=== PATIENT | male | born 1985 | race Caucasian/White ===

== ENCOUNTER → 2024-10-12 | Outpatient (CLI) | payer OTHER, MEDICAID, SELFPAY ==
--- NOTE | 2024-10-12 13:06 | EKG_ITS ---
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
== END | disposition home or self-care (01) ==
LOC: SDIM 12:43 → SEKG 12:58
PROVIDERS: PCP Specialist; Referring Provider Specialist; Visit Provider Specialist
DX: Z01.810 Encounter for preprocedural cardiovascular examination (principal)
CPT/HCPCS: 93005

== ENCOUNTER 2024-10-16 08:10 | Day surgery (SDC) | payer OTHER, MEDICAID, SELFPAY ==
[2024-10-12 13:18] LABS: Partial Thromboplastin Time 27.6 Seconds (22.0-36.0); Prothrombin Time 10.9 Seconds (9.0-12.2)
[2024-10-12 13:24] LABS: Alanine Aminotransferase 49 U/L (10-49); Albumin, Serum 4.9 gm/dL (3.5-5.0); Albumin/Globulin Ratio 1.8 (1.2-2.2); Alkaline Phosphatase 77 U/L (46-116); Anion Gap 9 (7-16); Aspartate Amino Transferase 33 U/L (0-34); BUN/Creatinine Ratio 27 Ratio (12-20); Bilirubin,Total 0.5 mg/dL (0.3-1.2); Blood Urea Nitrogen 27 mg/dL (9-23); Calcium 9.9 mg/dL (8.3-10.6); Calcium (Corrected) 9.9 mg/dL (8.5-10.1); Carbon Dioxide 26.1 mMol/L (20.0-31.0); Chloride 104 mMol/L (98-107); Globulin 2.7 gm/dL (2.3-3.5); Glucose 105 mg/dL (74-106); Osmolality,Calculated 282 (275-295); Potassium 4.3 mMol/L (3.4-5.1); Sodium 139 mMol/L (136-145); Total Protein 7.6 gm/dL (5.7-8.2); eGFR > 60 See Note
[2024-10-16 09:33] VITALS: BP 132/87; PULSE 67; RESP 17; TEMP 36.7; O2SAT 96; BMI 25.3
[2024-10-16] MEDS: SODIUM CHLORIDE 0.9% 500 ML 500 ML 80 ML IV (10:15)
[2024-10-16 11:00] VITALS: BP 130/77; PULSE 88; RESP 128; TEMP 36.8; O2SAT 94
[2024-10-16 11:10] VITALS: BP 125/76; PULSE 74; RESP 15; O2SAT 96
[2024-10-16 11:20] VITALS: BP 119/76; PULSE 69; RESP 16; O2SAT 93
[2024-10-16 11:30] VITALS: BP 116/83; PULSE 69; RESP 20; O2SAT 97
== END 2024-10-16 12:03 | disposition home or self-care (01) ==
PROVIDERS: PCP Family Medicine; Referring Provider Specialist; Visit Provider Specialist
PROC: 0DBE8ZX Excision of Large Intestine, Via Natural or Artificial Opening Endoscopic, Diagnostic (ICD-10-PCS; CPT 45380; principal; 2024-10-16 09:00)
PROC: (CPT 43239; 2024-10-16 09:00)
DX: K64.9 Unspecified hemorrhoids (principal); K57.31 Diverticulosis of large intestine without perforation or abscess with bleeding; K21.01 Gastro-esophageal reflux disease with esophagitis, with bleeding; K22.2 Esophageal obstruction; K29.71 Gastritis, unspecified, with bleeding
CPT/HCPCS: 45378; 43248; 43239; 36415; 80053; 85610; 85730; A4649; C1769; J7040

== ENCOUNTER 2025-08-28 19:43 | Emergency (ER) | payer OTHER, SELFPAY ==
[2025-08-28 19:45] VITALS: BMI 26.1
[2025-08-28 20:31] VITALS: BP 147/85; PULSE 66; RESP 18; TEMP 36.6; O2SAT 95
--- NOTE | 2025-08-28 20:54 | EDNOTE_ITS ---
ED Abdominal Pain RME/HPI General Chief Complaint: Abdominal Pain Stated complaint: DIVERTICULITIS FLARES, R. LOWER ABD PAIN Time seen by provider: 08/28/25 20:45 Arrival date/time: 08/28/25 19:43 40M with history of diverticulitis and esophagitis presents to ED with several weeks of lower ab pain. Patient think it's a diverticulitis flare. Patient recently finished a 1 week course of Augmentin, which helped a bit. Patient also supplements testosterone, but denies urinary/genital symptoms. Patient has had multiple unremarkable colonoscopies and EGDs. Limitations: no limitations Related Data Home Medications ?Medication ?Instructions ?Recorded ?Confirmed albuterol sulfate 90 mcg/actuation 2 puff inhalation Q DAY PRN 12/23/22 10/16/24 aerosol inhaler Shortness Of Breath Or Wheez ing oxycodone 20 mg tablet 20 mg PO Q4HR PRN Pain 12/2310/16/24 omeprazole 20 mg capsule,delayed 20 mg PO DAILY 10/16/24 release Allergies Allergy/AdvReac Type Severity Reaction Status Date / Time dexlansoprazole (From Allergy Severe Chest Pain Verified 08/28/25 19:44 Dexilant) Review of Systems Review of Systems Systems Reviewed: All systems reviewed, normal except as documented Gastrointestinal Gastrointestinal: Reports as per HPI and Reports abdominal pain Past Medical History Past Medical History NEUROLOGIC: Positive Neurological Disorders (TRIGEMINAL NEUROLGIA); Negative Seizures CARDIAC: Negative Cardiac Disorders or Congestive Heart Failure RESPIRATORY: Positive Asthma (INHALER PRN), Pneumonia and Sleep Apnea; Negative Chronic Obstructive Pulmonary Disease (COPD) GASTROINTESTINAL: Positive Gastrointestinal Disorders (DYSPHAGIA, HX OF ESOPHAGEAL SPASMS, EOE), Diverticulitis, Diverticulosis, Hemorrhoids and Gastroesophageal Reflux Disease; Negative Hepatitis GENITOURINARY: Negative Genitourinary Disorders or Renal Disease MUSCULOSKELETAL: Positive Musculoskeletal Disorders, Degenerative Disk Disease, Scoliosis, Fibromyalgia and Fractures ENDOCRINE: Negative Endocrine Disorders, Diabetes Mellitus Type 1 or Diabetes Mellitus Type 2 HEMATOLOGIC: Negative Blood Disorders or Sickle Cell Disease PSYCHO/SOCIAL: Negative Depression OTHER HISTORY: Positive Hospitalization and Chicken Pox; Negative Autoimmune Disease, Shingles, Falls, Blood Transfusions, Anesthesia Reactions, Chemotherapy, Radiation Therapy, MRSA, Human Immunodeficiency Virus (HIV), Measles, Mumps, Rubella ([place] Measles), Pertussis or Cancer Family History FAMILY HISTORY: Positive Family Psychiatric Problems, Family Respiratory Disorders, Family Cardiac Disorders, Family Cancer (FATHER ESOPHAGEAL CA, GRANDFATHER COLON CA) and Family Surgery; Negative Family Gastrointestinal Problems or Family Anesthesia Reaction Surgical History SURGICAL: Positive Ear Surgery ( PAULOFF HARBOR SYNDROME ), Abdominal Surgery, Arthroscopy (RIGHT KNEE) and Neurologic Surgery (BRAIN SX X 3 TO RELESE PINCHED NERVES); Negative Cardiac Surgery Social History SMOKING STATUS: Former smoker SECOND HAND EXPOSURE: Yes SUBSTANCE USE: does not use ED Exam General Limitations: Present no limitations General appearance: Present alert and in no apparent distress Head Head exam: Present atraumatic Neck Neck exam: Present normal inspection, full ROM and trachea midline Chest Chest inspection: Present normal inspection and symmetric chest wall rise Abdominal Exam Abdominal exam: Present soft; Absent tenderness Neurological Exam Neurological exam: Present alert and oriented X3 Psychiatric Psychiatric exam: Present normal affect and normal mood Skin Skin exam: Present warm, dry, intact and normal color Course Quality Measures none Orders Category Date Time Status Alcohol, Blood Medical Stat Lab 08/28/25 20:52 Completed CBC Stat Lab 08/28/25 20:52 Completed CMP [Comprehensive Metabolic Panel] Stat Lab 08/28/25 20:52 Completed Drug Screen,Urine Stat Lab 08/28/25 21:04 Completed Lactate (Lactic Acid) Stat Lab 08/28/25 20:52 Completed Procalcitonin Stat Lab 08/28/25 20:52 Completed Urinalysis, C/S if Indicated Stat Lab 08/28/25 21:04 Completed Vital Signs Vital signs: Vital Signs Temperature 98 F 08/28/25 20:31 Pulse Rate 66 08/28/25 20:31 Respiratory Rate 18 08/28/25 20:31 Blood Pressure 147/85 H 08/28/25 20:31 Pulse Oximetry (%) 95 08/28/25 20:31 Oxygen Delivery Method Room Air 08/28/25 20:31 O2 at 95% on RA and WNLs Abdominal Pain MDM MDM Narrative MDM Narrative:: 40M with history of diverticulitis and esophagitis presents to ED with several weeks of lower ab pain. Patient think it's a diverticulitis flare. Patient recently finished a 1 week course of Augmentin, which helped a bit. Patient also supplements testosterone, but denies urinary/genital symptoms. Patient has had multiple unremarkable colonoscopies and EGDs. Physical exam reveal no focal ab tenderness. Patient is afebrile, calm, and alert. No leukocytosis or L shift. CMP unremarkable. Procal/lactate normal. UA clean. Patient declines further diagnostics including CT. Patient data External records reviewed:: [facility] previous records Clinical information provided by:: patient Social determinants that could affect healthcare access:: none Patient has the following chronic illnesses:: diverticulitis and esophagitis How is presenting disease/condition affected by chronic disease/condition?: exacerbated by Evaluation data The following diagnostics were reviewed and interpreted by me:: lab results Lab and/or radiology exams considered but not ordered:: ordered Interpretation Summary: above Medications / Prescriptions Medications or Prescriptions considered but not ordered:: not ordered Medication administrations:: n/a Consultations Consultation(s) initiated? (list below): No Diagnosis Differential diagnosis abdominal pain: abdominal pain, acute appendicitis, calculus of kidney, constipation, diverticulitis, gastroenteritis, pancreatitis and small bowel obstruction Most likely diagnosis given after review of the tests above:: ab pain Admission Indicated Admission indicated?: not indicated Admission Request Was there a request for admission?: No Disposition Plan Disposition Plan: Discharge Discharge Attestation Discharge Attestation: The patient and all family members were given an opportunity to ask questions and understood the discharge instructions. Discharge instructions specifically effects, indications for sooner follow up or return to the emergency department, and the expected course of current diagnosis. Patient condition: Stable Discharge Plan Plan Patient Disposition: HOME (Self Care) Discharge Disposition comment: Stable Prescriptions/Referrals Prescriptions/Med Rec: No Action omeprazole 20 mg capsule,delayed release(DR/EC) 20 mg PO DAILY Patient Comments: TAKE 1 CAPSULE BY MOUTH EVERY DAY albuterol sulfate 90 mcg/actuation HFA aerosol inhaler 2 puff INHALATION QDAY PRN (Reason: Shortness Of Breath Or Wheezing) Patient Comments: INHALE 2 PUFFS INTO THE LUNGS EVERY 4 HOURS NEEDED FOR 30 DAYS oxycodone 20 mg tablet 20 mg PO Q4HR PRN (Reason: Pain) Patient Comments: 1 TABLET ORALLY EVERY 4 HRS 30 DAYS Referrals: No Primary/Family,Physician [Primary Care Provider] - In 1 week Problem List Clinical Impression: Abdominal pain Patient/Caregiver Discharge Instructions Education Materials: Abdominal Pain Additional Instructions: Please follow-up with PCP within 24-48 hours and return immediately if symptoms worsen. Print Language: Cymro Stand Alone Forms: Patient Portal Info Letter FARNAZ/ANNEMARIE Supervising Physician FARNAZ/ANNEMARIE Supervising Physician: Dr. Voss
[2025-08-28 21:01] LABS: Lactate (Lactic Acid) 1.0 mMol/L (0.4-2.0)
[2025-08-28 21:11] LABS: Basophils # (Auto) 0.1 Thou/mm3 (0.0-0.2); Basophils % (Auto) 1 % (0-2.5); Eosinophils # (Auto) 0.3 Thou/mm3 (0.0-0.5); Eosinophils % (Auto) 4 % (0-10); Hematocrit 47.3 % (41.0-53.0); Hemoglobin 15.9 g/dL (13.5-16.0); Immature Granulocytes Auto 0.02 Thou/mm3 (0.00-0.00); Lymphocytes # (Auto) 2.7 Thou/mm3 (1.0-4.8); Lymphocytes % (Auto) 34 % (10-50); Mean Corpuscular HGB Conc 33.6 g/dl (31.0-37.0); Mean Corpuscular Hemoglobin 28.4 pg (25.0-35.0); Mean Corpuscular Volume 85 fL (80-100); Monocytes # (Auto) 0.6 Thou/mm3 (0.0-0.8); Monocytes % (Auto) 8 % (0-12); Neutrophils # (Auto) 4.3 Thou/mm3 (1.8-7.7); Neutrophils % (Auto) 54 % (37-80); Nucleated Red Blood Cell # 0.00 Thou/mm3 (0.00-0.00); Nucleated Red Blood Cell % 0 /100 WBC (0); Platelet Count 277 Thou/mm3 (140-440); RDW Standard Deviation 39.4 fL (35.1-43.9); Red Blood Count 5.60 Miln/mm3 (4.50-5.90); White Blood Count 7.9 Thou/mm3 (3.8-10.6)
[2025-08-28 21:32] LABS: Alanine Aminotransferase 29 U/L (10-49); Albumin, Serum 4.9 gm/dL (3.5-5.0); Albumin/Globulin Ratio 2.0 (1.2-2.2); Alcohol, Blood Medical < 3.0 mg/dL (0-10.0); Alkaline Phosphatase 67 U/L (46-116); Anion Gap 10 (7-16); Aspartate Amino Transferase 22 U/L (0-34); BUN/Creatinine Ratio 17 Ratio (12-20); Bilirubin,Total 0.4 mg/dL (0.3-1.2); Blood Urea Nitrogen 19 mg/dL (9-23); Calcium 9.7 mg/dL (8.3-10.6); Calcium (Corrected) 9.7 mg/dL (8.5-10.1); Carbon Dioxide 27.5 mMol/L (20.0-31.0); Chloride 108 mMol/L (98-107); Creatinine (Component) 1.1 mg/dL (0.6-1.3); Estimated Creatinine Clearance 101.9 mL/min (>60); Globulin 2.4 gm/dL (2.3-3.5); Glucose 111 mg/dL (74-106); Osmolality,Calculated 291 (275-295); Potassium 4.0 mMol/L (3.4-5.1); Procalcitonin 0.05 ng/ml (0.0-0.49); Sodium 145 mMol/L (136-145); Total Protein 7.3 gm/dL (5.7-8.2); eGFR > 60 See Note
[2025-08-28 22:16] LABS: Collection Type, Urine Clean Catch
[2025-08-28 22:28] LABS: Amphetamine/Methamp Scrn,U Negative (Negative); Barbiturate Screen,Urine Negative (Negative); Benzodiazepines Screen,Urine Negative (Negative); Benzoylecgonine Screen, Ur Negative (Negative); Fentanyl Screen,Urine Negative (Negative); Opiate Screen,Urine Negative (Negative); THC Screen,Urine Negative (Negative)
[2025-08-28 22:38] LABS: Bilirubin,Urine Negative (Negative); Blood,Urine Negative (Negative); Clarity,Urine Clear (Clear/Hazy); Color,Urine Lt-Yellow (Lt Yel-Yel); Culture Indicated,Urine Not Indicated; Glucose, Urine Negative (Negative); Ketones,Urine Negative (Negative); Leukocyte Esterase,Urine Negative (Negative); Nitrite,Urine Negative (Negative); PH,Urine 6.0 (5.0-7.0); Protein,Urine Negative (Neg - Trace); RBC,Urine 2 /hpf (0-3); Specific Gravity,Urine 1.027 (1.001-1.035); Squamous Epithelial Cell,Urine < 1 /hpf (0-5); Urobilinogen,Urine Negative mg/dL (0.0-1.0); WBC,Urine 1 /hpf (0-5)
== END 2025-08-28 23:04 | disposition home or self-care (01) ==
PROVIDERS: Physician Assistant; Emergency Provider Emergency Medicine
DX: K57.32 Diverticulitis of large intestine without perforation or abscess without bleeding (principal); K20.90 Esophagitis, unspecified without bleeding
CPT/HCPCS: 36415; 80053; 80307; 80320; 81001; 83605; 84145; 85025; 99282; G0480